=== PATIENT | male | born 1995 | race Caucasian/White ===

== ENCOUNTER 2024-05-21 18:20 | Emergency (ER) | payer MEDICAID ==
[~2024-05-21] VITALS: Ht 172.7 cm; Wt 70.0 kg
[2024-05-21 18:24] VITALS: TEMP 98.4; O2SAT 97
[2024-05-21 18:55] LABS: BASOPHILS % 0.2 % (0.0-2.0); EOSINOPHILS % 0.8 % (0.0-5.0); HEMATOCRIT. 48.2 % (42.0-52.0); HEMOGLOBIN. 15.9 g/dL (14.0-18.0); LYMPHOCYTES % 18.9 % (20.0-50.0); MEAN CORPUSCULAR HGB CONC 32.9 g/dL (31.0-37.0); MEAN PLATELET VOLUME 8.2 fl (7.4-10.4); MONOCYTES % 6.5 % (2.0-8.0); NEUTROPHILS % 73.6 % (40.0-76.0); PLATELET 257 x1000/uL (130-400); RED BLOOD CELL COUNT 5.67 mill/uL (4.7-6.1); RED CELL DISTRIBUTION WIDTH 14.6 % (11.6-14.6); WHITE BLOOD COUNT 9.6 x1000/uL (4.5-11.0)
[2024-05-21 19:02] LABS: CHLORIDE 102 mEq/L (98-107); POTASSIUM 3.6 mEq/L (3.5-5.1); SODIUM 136 mEq/L (136-145)
[2024-05-21 19:03] LABS: CARBON DIOXIDE 21 mEq/L (21-32)
[2024-05-21 19:08] LABS: CREATININE 1.1 mg/dL (0.6-1.3); GLUCOSE 120 mg/dL (70-105); UREA NITROGEN BLOOD 9 mg/dL (9-23)
[2024-05-21] MEDS: FOLIC ACID 1 MG, THIAMINE HCL 100 MG, MVI, ADULT NO.1 10 ML in DEXTROSE 5% WATER 1,000 ML IV ONE (19:15)
[2024-05-21 19:27] LABS: ALANINE AMINOTRANSFERASE 61 IU/L (10-49)
[2024-05-21 19:28] LABS: ALBUMIN 4.9 g/dL (3.2-4.8); ASPARTATE AMINOTRANSFERASE 41 IU/L (<34); BILIRUBIN DIRECT 0.2 mg/dL (<=3.0); BILIRUBIN TOTAL 0.8 mg/dL (0.1-1.0); PROTEIN TOTAL 8.4 g/dL (6.0-8.3); TROPONIN I HIGH SENSITIVITY 4 ng/L (3.0-53)
[2024-05-21 19:31] LABS: THYROID STIMULATING HORMONE 3.84 uIU/mL (0.55-4.78)
[2024-05-21 19:42] LABS: ETHANOL BLOOD < 10 mg/dL (<10)
[2024-05-21] MEDS: SODIUM CHLORIDE 0.9% 1,000 ML IV ONE (19:55)
[2024-05-21] MEDS: DIAZEPAM 5 MG/ML 2ML SYR IV ONE (19:56)
[2024-05-21 21:02] LABS: CLARITY URINE CLEAR (CLEAR); COLOR URINE YELLOW (YELLOW); GLUCOSE URINE NEGATIVE (NEGATIVE); KETONES URINE 2+ (NEGATIVE); LEUKOCYTE ESTERASE URINE NEGATIVE (NEGATIVE); NITRITE URINE NEGATIVE (NEGATIVE); OCCULT BLOOD URINE NEGATIVE (NEGATIVE); PH URINE 7.5 (4.5-8.0); PROTEIN URINE 1+ (NEGATIVE)
[2024-05-21 21:21] LABS: BACTERIA URINE 1+; RBC URINE 0-2 /hpf (0-2); SQUAMOUS EPITHELIAL CELL URINE NONE SEEN /lpf (RARE/1+); WBC URINE 0-2 /hpf (0-2)
[2024-05-21 21:22] LABS: COARSE GRANULAR CASTS URINE 0-5 /lpf
[2024-05-21 21:23] LABS: *AMPHETAMINES SCREEN URINE NEGATIVE (NEGATIVE); *BARBITURATES SCREEN URINE NEGATIVE (NEGATIVE); *BENZODIAZEPINES SCREEN URINE NEGATIVE (NEGATIVE); *COCAINE SCREEN URINE NEGATIVE (NEGATIVE); OPIATES URINE SCREEN NEGATIVE (NEGATIVE)
[2024-05-21 21:24] LABS: ECSTASY MDMA SCREEN URINE NEGATIVE (NEGATIVE); METHADONE URINE SCREEN NEGATIVE (NEGATIVE)
[2024-05-21 21:27] LABS: CANNABINOID URINE SCREEN NEGATIVE (NEGATIVE); PHENCYCLIDINE URINE SCREEN NEGATIVE (NEGATIVE)
[2024-05-22 00:48] VITALS: BP 137/91; PULSE 79; RESP 12; O2SAT 98
== END 2024-05-22 00:50 | disposition home or self-care (01) ==
LOC: ER 18:20
DX: F10.239 Alcohol dependence with withdrawal, unspecified (principal); F41.9 Anxiety disorder, unspecified; Y90.0 Blood alcohol level of less than 20 mg/100 ml
CPT/HCPCS: 80076; 80305; 80048; 81003; 80320; 83880; 84443; 85025; 84484; 36415; 93005; 96365; 96366; 96375; 99291; J3360; J3490 ×2; J3411; J7070; J7030; G0480

== ENCOUNTER 2024-07-18 16:47 | Emergency (ER) | payer MEDICAID ==
[~2024-07-18] VITALS: Ht 170.2 cm; Wt 72.0 kg
[2024-07-18 17:12] VITALS: O2SAT 100
[2024-07-18] MEDS ORDERED: AMOX500T2 MT (20:28)
[2024-07-18] MEDS ORDERED: IBUP-2028 MT (20:28)
[2024-07-18 20:41] VITALS: TEMP 36.83628; O2SAT 100
[2024-07-18 20:44] VITALS: BP 164/93; PULSE 85; RESP 16
[2024-07-18] MEDS: IBUPROFEN 400MG TABLET PO ONE (20:44)
== END 2024-07-18 20:45 | disposition home or self-care (01) ==
LOC: ER 16:47
DX: H66.92 Otitis media, unspecified, left ear (principal); R00.0 Tachycardia, unspecified; F10.90 Alcohol use, unspecified, uncomplicated; H91.92 Unspecified hearing loss, left ear; Y90.9 Presence of alcohol in blood, level not specified
CPT/HCPCS: 93005; 99283

== ENCOUNTER 2024-08-26 20:41 | Emergency (ER) | payer MEDICAID ==
[~2024-08-26] VITALS: Ht 172.7 cm; Wt 78.0 kg
[~2024-08-26 20:41] MED LIST: AMOX500T2 MT; IBUP-2028 MT
[2024-08-26 20:48] VITALS: O2SAT 99
[2024-08-26 21:26] LABS: BASOPHILS % 0.6 % (0.0-2.0); EOSINOPHILS % 0.3 % (0.0-5.0); HEMATOCRIT. 48.3 % (42.0-52.0); HEMOGLOBIN. 16.4 g/dL (14.0-18.0); LYMPHOCYTES % 22.5 % (20.0-50.0); MEAN CORPUSCULAR HEMOGLOBIN 28.3 pg (28.0-32.0); MEAN CORPUSCULAR VOLUME 83.4 fL (80.0-94.0); MEAN PLATELET VOLUME 8.7 fl (7.4-10.4); MONOCYTES % 7.6 % (2.0-8.0); PLATELET 420 x1000/uL (130-400); RED BLOOD CELL COUNT 5.79 mill/uL (4.7-6.1); RED CELL DISTRIBUTION WIDTH 13.2 % (11.6-14.6); WHITE BLOOD COUNT 10.7 x1000/uL (4.5-11.0)
[2024-08-26 21:34] LABS: CHLORIDE 100 mEq/L (98-107); POTASSIUM 3.5 mEq/L (3.5-5.1); SODIUM 137 mEq/L (136-145)
[2024-08-26 21:35] LABS: CALCIUM 10.3 mg/dL (8.7-10.4); CARBON DIOXIDE 24 mEq/L (21-32); PROTHROMBIN TIME 11.3 sec (9.6-11.0)
[2024-08-26 21:40] LABS: GLUCOSE 111 mg/dL (70-105); UREA NITROGEN BLOOD 10 mg/dL (9-23)
[2024-08-26 21:58] LABS: TROPONIN I HIGH SENSITIVITY < 4 ng/L (3.0-53)
[2024-08-27] MEDS: LORAZEPAM 2MG/ML INJ IM ONE (00:17)
[2024-08-27 01:14] VITALS: BP 141/94; PULSE 98; RESP 20; TEMP 36.8; O2SAT 99
== END 2024-08-27 01:16 | disposition home or self-care (01) ==
LOC: ER 20:41
DX: F10.939 Alcohol use, unspecified with withdrawal, unspecified (principal); R00.0 Tachycardia, unspecified; F41.9 Anxiety disorder, unspecified; Y90.9 Presence of alcohol in blood, level not specified
CPT/HCPCS: 99285; 71045; 80048; 85025; 85610; 86850; 86900; 86901; 84484; 36415; 93005; 96372; J2060